=== PATIENT | male | born 1955 | race Caucasian/White ===

== ENCOUNTER → 2020-03-09 | Outpatient (CLI) | payer MEDICARE ==
[~2020-03-09] MED LIST: IBUPROFEN 200200 M1 PO; PROTONIX40 M1 PO; SUPER BETA PROSTATE PO
== END ==
LOC: MRI 09:27
DX: M94.262 Chondromalacia, left knee (principal); M23.92 Unspecified internal derangement of left knee

== ENCOUNTER 2020-09-23 16:51 | Emergency (ER) | payer MEDICARE ==
[~2020-09-23] VITALS: Ht 182.9 cm; Wt 77.1 kg
[2020-09-23] MEDS ORDERED: HYDROCODON-ACE1 EAC7 PO (21:15)
[2020-09-23] MEDS ORDERED: MEDROLDOSEPACK PO (21:15)
[2020-09-23] MEDS ORDERED: ZANAFLEX4 MG PO (21:15)
[2020-09-23 21:37] VITALS: BP 103/83
== END 2020-09-23 21:38 | disposition home or self-care (01) ==
LOC: ER 16:51
DX: M54.5 Low back pain (principal); K21.9 Gastro-esophageal reflux disease without esophagitis; Z79.899 Other long term (current) drug therapy; Z87.891 Personal history of nicotine dependence